=== PATIENT | male | born 1970 | race Caucasian/White ===

== ENCOUNTER → 2020-01-16 | Outpatient (CLI) | payer OTHER ==
[2020-01-16 09:00] LABS: ALANINE AMINOTRANSFERASE 118 U/L (12-78); ALBUMIN 3.7 g/dL (3.4-5.0); ANION GAP 6 mmol/L (5-15); CALCIUM 8.5 mg/dL (8.5-10.1); CHLORIDE 109 mmol/L (98-107); CREATININE 1.13 mg/dL (0.7-1.3); GAMMA GLUTAMYL TRANSPEPTIDASE 54 U/L (15-85)
[2020-01-16 09:19] LABS: % IRON SATURATION 38 % (20-55); ALKALINE PHOSPHATASE 47 U/L (45-117); BILIRUBIN,TOTAL 0.8 mg/dL (0.2-1.0); IRON LEVEL 138 mcg/dL (65-175); TOTAL IRON BINDING CAPACITY 362 mcg/dL (250-450); TOTAL PROTEIN 7.4 g/dL (6.4-8.2)
== END | disposition home or self-care (01) ==
LOC: LAB 08:36
PROVIDERS: ATTEND Family Medicine
DX: R74.0 Nonspecific elevation of levels of transaminase and lactic acid dehydrogenase [LDH] (principal); E29.1 Testicular hypofunction
CPT/HCPCS: 36415; 80053; 80074; 82728; 82784; 82977; 83001; 83002; 83516; 83540; 83550; 84402; 84403; 86255

== ENCOUNTER → 2020-10-10 | Outpatient (CLI) | payer OTHER | END | disposition home or self-care (01) | LOC: STAR 09:49 | PROVIDERS: ATTEND Orthopaedic Surgery | DX: Z20.828 Contact with and (suspected) exposure to other viral communicable diseases (principal); G56.02 Carpal tunnel syndrome, left upper limb | CPT/HCPCS: 87635 ==

== ENCOUNTER 2020-10-14 10:21 | Day surgery (SDC) | payer OTHER ==
[~2020-10-14] VITALS: Ht 172.7 cm; Wt 75.4 kg
[2020-10-14 10:52] VITALS: BP 148/84
[2020-10-14] MEDS ORDERED: ZINC PO (10:57)
[2020-10-14] MEDS ORDERED: VITAMIN D PO (10:57)
[2020-10-14] MEDS ORDERED: THIA100T27 PO (10:57)
[2020-10-14] MEDS ORDERED: CHLORHEXIDINE 15 ML UDC ONE (10:59)
[2020-10-14] MEDS ORDERED: CHLORHEXIDINE 15 ML UDC MM ONE (11:00)
[2020-10-14] MEDS ORDERED: LACTATED RINGERS 1,000 ML IV SCH (11:00)
[2020-10-14] MEDS ORDERED: PROMETHAZINE 25 MG/ML, 1ML IVPush PRN (11:00)
[2020-10-14] MEDS ORDERED: HYDROmorphone 1 MG/ML, 1ML INJ IVPush PRN (11:00)
[2020-10-14] MEDS ORDERED: OXYcodone 5 MG/5 ML ORAL.SOL UDC PO PRN (11:00)
[2020-10-14] MEDS ORDERED: KETOROLAC 30 MG/1 ML IVPush PRN (11:00)
[2020-10-14] MEDS ORDERED: HYDROcodone/APAP 7.5-325MG/15ML UDC PO PRN (11:00)
[2020-10-14] MEDS ORDERED: FENTANYL PF 100 MCG/2ML IV PRN (11:00)
[2020-10-14] MEDS ORDERED: FENTANYL PF 100 MCG/2ML ONE (11:24)
[2020-10-14] MEDS ORDERED: MIDAZOLAM 1 MG/ML, 2ML ONE (11:24)
[2020-10-14] MEDS ORDERED: LIDOCAINE/PF 1%, 30ML ONE (12:06)
[2020-10-14] MEDS ORDERED: EPINEPHRINE 1 MG/ML, 1ML ONE (12:06)
[2020-10-14] MEDS ORDERED: BUPIVACAINE/PF 0.5% ONE (12:06)
[2020-10-14] MEDS ORDERED: PROPOFOL 50 ML ONE (12:28)
== END 2020-10-14 15:00 | disposition home or self-care (01) ==
LOC: OUT 10:21
PROVIDERS: ATTEND Orthopaedic Surgery
DX: G56.03 Carpal tunnel syndrome, bilateral upper limbs (principal); Z79.899 Other long term (current) drug therapy; Z88.2 Allergy status to sulfonamides
CPT/HCPCS: 29848; J0171; J2250; J2704; J3010; J7120